=== PATIENT | female | born 1995 ===

== ENCOUNTER 2018-04-12 11:10 | Emergency (ER) | payer OTHER ==
[~2018-04-12] VITALS: Ht 172.7 cm; Wt 52.6 kg
== END 2018-04-12 16:24 | disposition home or self-care (01) ==
LOC: ER 11:10
DX: R51 Headache (principal)

== ENCOUNTER 2018-04-13 21:19 | Emergency (ER) | payer OTHER ==
[~2018-04-13] VITALS: Ht 172.7 cm; Wt 52.6 kg
[2018-04-14] MEDS ORDERED: LEVAQUIN750 MG PO (04:06)
== END 2018-04-14 04:14 | disposition home or self-care (01) ==
LOC: ER 21:19
DX: J32.0 Chronic maxillary sinusitis (principal)